=== PATIENT | female | born 1995 | race American Indian/Alaskan Native ===

== ENCOUNTER 2018-09-22 07:31 | Emergency (ER) | payer MEDICAID, OTHER ==
[2018-09-22 07:41] VITALS: BMI 16.9
[2018-09-22] MEDS ORDERED: Sodium Chloride 0.9% 1,000 ML IV STA ×2 (07:54→09:12)
--- NOTE | 2018-09-22 08:13 | ED PDOC ---
Arrival/HPI - General Chief Complaint: Abdominal Pain Time Seen by Provider: 09/22/18 07:33 Historian: Patient - History of Present Illness Narrative History of Present Illness (Text): 09/22/18 07:53 23 y/o F, with past medical history of pyelonephritis, presents to the ED for evaluation of fever, abdominal pain, and nausea since yesterday. Patient informs associated headache since past 2 days, mildly improved since onset. Patient reports a non-radiating sharp right sided abdominal pain associated with mild dysuria, prompting her to present to the ED for evaluation. Patient denies taking any pain medication at home. Patient denies any other associated somatic complaints. Patient denies any dizziness, chest pain, shortness of breath, dyspnea on exertion, cough, vomiting, diarrhea, back pain, neck pain, vaginal bleeding/discharge or any other complaints. Patient denies any history of asthma or abdominal surgeries. Patient denies compliance with the flue shot this year. Patient reports her LNMP was 4 days ago. PMD: NONE Time/Duration: 24 hours Symptom Onset: Gradual Symptom Course: Unchanged Activities at Onset: Light Context: Home Past Medical History - Provider Review Nursing Documentation Reviewed: Yes - Infectious Disease Hx of Infectious Diseases: None - Tetanus Immunization Tetanus Immunization: Unknown - Psychiatric Hx Substance Use: No - Anesthesia Hx Anesthesia: No Hx Anesthesia Reactions: No Hx Malignant Hyperthermia: No Family/Social History - Physician Review Nursing Documentation Reviewed: Yes Family/Social History: No Known Family HX Smoking Status: Former Smoker Hx Alcohol Use: No Hx Substance Use: No Allergies/Home Meds Allergies/Adverse Reactions: Allergies No Known Allergies Allergy (Verified 09/15/16 18:00) Review of Systems - Physician Review All systems were reviewed & negative as marked: Yes - Review of Systems Constitutional: Fevers Eyes: absent: Vision Changes Respiratory: absent: SOB, Cough Cardiovascular: absent: Chest Pain, PISANO Gastrointestinal: Abdominal Pain, Nausea. absent: Diarrhea, Vomiting Genitourinary Female: Dysuria. absent: Urine Output Changes, Vaginal Bleeding, Vaginal Discharge Musculoskeletal: absent: Back Pain, Neck Pain Skin: absent: Rash Neurological: Headache. absent: Dizziness Physical Exam Vital Signs Reviewed: Yes Vital Signs Temp Pulse Resp BP Pulse Ox 09/22/18 07:32 103 F H 107 H 20 103/64 99 Temperature: Febrile Blood Pressure: Normal Pulse: Tachycardic Respiratory Rate: Normal Appearance: Positive for: Well-Appearing, Non-Toxic, Comfortable Pain Distress: None Mental Status: Positive for: Alert and Oriented X 3 - Systems Exam Head: Present: Atraumatic, Normocephalic Pupils: Present: PERRL Extroacular Muscles: Present: EOMI Conjunctiva: Present: Normal Mouth: Present: Moist Mucous Membranes Neck: Present: Normal Range of Motion. No: Meningeal Signs Respiratory/Chest: Present: Clear to Auscultation, Good Air Exchange. No: Respiratory Distress, Accessory Muscle Use Cardiovascular: Present: Regular Rate and Rhythm, Normal S1, S2. No: Murmurs Abdomen: Present: Tenderness (tenderness to right lower quadrant). No: Distention, Peritoneal Signs, Rebound, Guarding Upper Extremity: Present: Normal Inspection. No: Cyanosis, Edema Lower Extremity: Present: Normal Inspection. No: Edema Neurological: Present: GCS=15, CN II-XII Intact, Speech Normal Skin: Present: Warm, Dry, Normal Color. No: Rashes Psychiatric: Present: Alert, Oriented x 3, Normal Insight, Normal Concentration Medical Decision Making ED Course and Treatment: 09/22/18 07:52 Impression: 23 year old female presents to the ED for evaluation of fever, abdominal pain and nausea. Differential Diagnosis included but are not limited to: -- Influenza -- Appendicitis -- Gastritis Plan: -- Labs -- Chest X-ray -- CT of Abdomen/Pelvis -- IV Fluids -- Toradol -- Tylenol -- Rapid Flu -- Urinalysis --Urine Culture --Rocephin -- Reassess and disposition Prior Visits: Notes and results from previous visits were reviewed. Progress Notes: 09/22/18 10:27 Labs reviewed with no leukocytosis noted. Urinalysis positive for nitrites and many bacteria. Rocephin ordered. - Lab Interpretations Lab Results: 09/22/18 08:00 09/22/18 08:00 Lab Results 09/22/18 08:00: pO2 64 H, VBG pH 7.37, VBG pCO2 50.0, VBG HCO3 28.9 H, VBG Total CO2 30.4 H, VBG O2 Sat (Calc) 94.4 H, VBG Base Excess 2.7 H, VBG Potassium 3.5 L , Sodium 137.0, Chloride 102.0, Glucose 115 H, Lactate 1.6, FiO2 21.0, Venous Blood Potassium 3.5 L 09/22/18 08:00: Sodium 139, Chloride 102, Potassium 3.5 L, Carbon Dioxide 29, Anion Gap 12, BUN 4 L, Creatinine 0.6 L, Est GFR ( Amer) > 60, Est GFR (Non-Af Amer) > 60, Random Glucose 119 H, Calcium 9.1, Total Bilirubin 0.4, AST 29, ALT 25, Alkaline Phosphatase 82, Total Protein 7.9, Albumin 4.1, Globulin 3.8, Albumin/Globulin Ratio 1.1, Lipase 28 09/22/18 08:00: Influenza Typ A,B (EIA) Negative for flu a/b 09/22/18 08:00: WBC 8.8, RBC 4.27, Hgb 12.5, Hct 38.4, MCV 89.9, MCH 29.3, MCHC 32.6, RDW 12.5, Plt Count 240, MPV 9.7, Gran % 69.9 H, Lymph % (Auto) 14.9 L, [place] % (Auto) 14.9 H, Eos % (Auto) 0.2 L, Baso % (Auto) 0.1, Gran # 6.15, Lymph # (Auto) 1.3, [place] # (Auto) 1.3 H, Eos # (Auto) 0.0, Baso # (Auto) 0.01 I have reviewed the lab results: Yes - RAD Interpretation Narrative RAD Interpretations (Text): 09/22/18 10:32 CT of Abdomen/Pelvis reviewed by radiologist, shows: FINDINGS: LOWER THORAX: Unremarkable. LIVER: Unremarkable. No gross lesion or ductal dilatation. GALLBLADDER AND BILE DUCTS: Unremarkable. PANCREAS: Unremarkable. No gross lesion or ductal dilatation. SPLEEN: Unremarkable. ADRENALS: Unremarkable. No mass. KIDNEYS AND URETERS: Unremarkable. No hydronephrosis. No solid mass. VASCULATURE: Unremarkable. No aortic aneurysm. No aortic atherosclerotic calcification or mural plaque present. BOWEL: Unremarkable. No obstruction. No gross mural thickening. APPENDIX: Normal appendix. PERITONEUM: There is a small amount of free fluid in the pelvis LYMPH NODES: Unremarkable. No enlarged lymph nodes. BLADDER: Unremarkable. REPRODUCTIVE: Unremarkable. BONES: No acute fracture. OTHER FINDINGS: None. IMPRESSION: Small amount of free fluid in the pelvis No acute intra-abdominal findings. No evidence of appendicitis Radiology Orders: 09/22/18 07:52 CHEST PORTABLE [RAD] Stat Donation Specialist: Radiologist - Medication Orders Current Medication Orders: Sodium Chloride (Sodium Chloride 0.9%) 1,000 mls @ 999 mls/hr IV .Q1H1M STA Stop: 09/22/18 08:54 Discontinued Medications Acetaminophen (Tylenol 325mg Tab) 650 mg PO STAT STA Stop: 09/22/18 07:53 Ketorolac Tromethamine (Toradol) 30 mg IVP STAT STA Stop: 09/22/18 07:53 - Scribe Statement The provider has reviewed the documentation as recorded by the Scribe Randolph Barajas. All medical record entries made by the Scribe were at my direction and personally dictated by me. I have reviewed the chart and agree that the record accurately reflects my personal performance of the history, physical exam, medical decision making, and the department course for this patient. I have also personally directed, reviewed, and agree with the discharge instructions and disposition. Disposition/Present on Arrival - Present on Arrival Any Indicators Present on Arrival: No History of DVT/PE: No History of Uncontrolled Diabetes: No Urinary Catheter: No History of Decub. Ulcer: No History Surgical Site Infection Following: None - Disposition Have Diagnosis and Disposition been Completed?: Yes Diagnosis: UTI (urinary tract infection) Disposition: HOME/ ROUTINE Disposition Time: 10:36 Patient Plan: Discharge Condition: IMPROVED Discharge Instructions (ExitCare): Urinary Tract Infection, Adult (DC) Print Language: BOT[place]NA[place] Additional Instructions: All medical record entries made by the Scribe were at my direction and personally dictated by me. I have reviewed the chart and agree that the record accurately reflects my personal performance of the history, physical exam, medical decision making, and the department course for this patient. I have also personally directed, reviewed, and agree with the discharge instructions and disposition. Please take Motrin every SIX hours with FOOD for fever/pain. Please visit clinic/PCP in 3-5 days Prescriptions: Cephalexin [Keflex] 500 mg PO BID 5 Days #10 capsule Ondansetron ODT [Zofran ODT] 4 mg PO PRN PRN #6 odt PRN Reason: Nausea/Vomiting Phenazopyridine HCl [Pyridium] 200 mg PO Q8H #12 tablet Referrals: Loren Chirinos MD [Medical Doctor] - Follow up with primary [facility] [place]] - Follow up with primary Forms: [employer] (Tuvaluan)
[2018-09-22 08:22] LABS: VENOUS BLOOD GAS BASE EXCESS 2.7 mmol/L (0.0-2.0); VENOUS BLOOD GAS PO2 64 mm/Hg (30-55); VENOUS BLOOD PH 7.37 (7.32-7.43)
[2018-09-22 08:23] LABS: BASO # 0.01 K/mm3 (0.0-2.0); BASO % 0.1 % (0.0-3.0); EOS % 0.2 % (1.5-5.0); GRAN # 6.15 (1.4-6.5); GRAN % 69.9 % (50.0-68.0); HEMOGLOBIN 12.5 g/dL (12.0-16.0); LYMPH # 1.3 (1.2-3.4); LYMPH % 14.9 % (22.0-35.0); MEAN CELL VOLUME 89.9 fl (80.0-105.0); MEAN CORPUSCULAR HEMOGLOBIN 29.3 pg (25.0-35.0); MEAN CORPUSCULAR HGB CONC 32.6 g/dl (31.0-37.0); MEAN PLATELET VOLUME 9.7 fl (7.0-11.0); MONO # 1.3 (0.1-0.6); MONO % 14.9 % (1.0-6.0); RBC 4.27 10^6/uL (3.5-6.1); RED CELL DISTRIBUTION WIDTH 12.5 % (11.5-14.5); WHITE BLOOD COUNT 8.8 10^3/uL (4.5-11.0)
[2018-09-22 08:33] LABS: ALB/GLOB RATIO 1.1 (1.1-1.8); ALBUMIN 4.1 g/dL (3.0-4.8); ALT/SGPT 25 U/L (7-56); AST/SGOT 29 U/L (14-36); BLOOD UREA NITROGEN 4 mg/dL (7-21); CALCIUM 9.1 mg/dL (8.4-10.5); GFR NON-AFRICAN AMERICAN > 60; LIPASE 28 U/L (23-300)
[2018-09-22] MEDS ORDERED: Iohexol 300 100 ML IJ ONE (08:44)
[2018-09-22 08:55] LABS: PH,URINE 7.5 (4.7-8.0); URINE APPEARANCE SL CLOUDY (CLEAR); URINE BILIRUBIN NEGATIVE (NEGATIVE); URINE BLOOD LARGE (NEGATIVE); URINE COLOR YELLOW (YELLOW); URINE GLUCOSE (UA) NEGATIVE (NEGATIVE); URINE LEUKOCYTE ESTERASE LARGE Leu/uL (NEGATIVE); URINE PROTEIN 30 mg/dL (<30 mg/dL)
[2018-09-22 08:59] LABS: URINE BACTERIA MANY /hpf; URINE RBC TNTC /hpf (0-2); URINE WBC TNTC /hpf (0-6)
[2018-09-22] MEDS ORDERED: cefTRIAXone 1 gm 1 GM/100 ML BAG IVPB STA (08:59)
[2018-09-22 09:36] VITALS: RESP 18
--- NOTE | 2018-09-22 10:14 | CT ---
Date of service: 09/22/2018 PROCEDURE: CT Abdomen and Pelvis with contrast HISTORY: RLQ abdominal pain COMPARISON: None. TECHNIQUE: Contrast dose: 100 cc of Omni 300 Radiation dose: Total exam DLP = 200.6 mGy-cm. This CT exam was performed using one or more of the following dose reduction techniques: Automated exposure control, adjustment of the mA and/or kV according to patient size, and/or use of iterative reconstruction technique. FINDINGS: LOWER THORAX: Unremarkable. LIVER: Unremarkable. No gross lesion or ductal dilatation. GALLBLADDER AND BILE DUCTS: Unremarkable. PANCREAS: Unremarkable. No gross lesion or ductal dilatation. SPLEEN: Unremarkable. ADRENALS: Unremarkable. No mass. KIDNEYS AND URETERS: Unremarkable. No hydronephrosis. No solid mass. VASCULATURE: Unremarkable. No aortic aneurysm. No aortic atherosclerotic calcification or mural plaque present. BOWEL: Unremarkable. No obstruction. No gross mural thickening. APPENDIX: Normal appendix. PERITONEUM: There is a small amount of free fluid in the pelvis LYMPH NODES: Unremarkable. No enlarged lymph nodes. BLADDER: Unremarkable. REPRODUCTIVE: Unremarkable. BONES: No acute fracture. OTHER FINDINGS: None. IMPRESSION: Small amount of free fluid in the pelvis No acute intra-abdominal findings. No evidence of appendicitis
[2018-09-22 11:28] VITALS: BP 104/68; PULSE 82; TEMP 98.8; O2SAT 100
--- NOTE | 2018-09-22 12:03 | RAD ---
Date of service: 09/22/2018 HISTORY: fever COMPARISON: No prior. FINDINGS: LUNGS: No active pulmonary disease. PLEURA: No significant pleural effusion identified, no pneumothorax apparent. CARDIOVASCULAR: No atherosclerotic calcification present Normal. OSSEOUS STRUCTURES: No significant abnormalities. VISUALIZED UPPER ABDOMEN: Normal. OTHER FINDINGS: None. IMPRESSION: No active disease.
== END 2018-09-22 11:29 | disposition home or self-care (01) ==
LOC: ED 07:31
DX: N39.0 Urinary tract infection, site not specified (principal)
CPT/HCPCS: 71045; 74177; 80053; 81001; 82803; 83690; 85025; 87040; 87086; 87181; 87804; 96361; 96365; 96375; 99283; J0696; J1885; J2765; J7030; Q9967

== ENCOUNTER 2018-12-08 17:27 | Emergency (ER) | payer MEDICAID ==
[2018-12-08 17:27] VITALS: BMI 18.5
[2018-12-08] MEDS ORDERED: Sodium Chloride 0.9% 1,000 ML IV STA (18:08)
[2018-12-08] MEDS ORDERED: DiphenhydrAMINE 50 mg/ml Inj IVP STA (18:08)
--- NOTE | 2018-12-08 19:22 | ED PDOC ---
Arrival/HPI - General Chief Complaint: Headache Time Seen by Provider: 12/08/18 17:27 Historian: Patient - History of Present Illness Narrative History of Present Illness (Text): 12/08/18 19:23 23 y/o female with no significant PMH presents to the ED c/o severe headache x 1 day. Headache is located over the right forehead, described as throbbing. Pt has never had migraine headaches in the past. States headache is severe. Associated intermittent lightheadedness, photophobia, and sinus congestion. Positive sick contact of son with the flu. Denies abdominal pain, chest pain, SOB, back pain, neck pain or stiffness, numbness, weakness, paresthesias, or any other associated symptoms. Past Medical History - Provider Review Nursing Documentation Reviewed: Yes - Infectious Disease Hx of Infectious Diseases: None - Tetanus Immunization Tetanus Immunization: Unknown - Psychiatric Hx Substance Use: No - Anesthesia Hx Anesthesia: No Hx Anesthesia Reactions: No Hx Malignant Hyperthermia: No Family/Social History - Physician Review Nursing Documentation Reviewed: Yes Family/Social History: No Known Family HX Smoking Status: Former Smoker Hx Alcohol Use: No Hx Substance Use: No Allergies/Home Meds Allergies/Adverse Reactions: Allergies No Known Allergies Allergy (Verified 12/08/18 17:45) Home Medications: Home Meds Medication Instructions Recorded Confirmed No Known Home Med 12/08/18 12/08/18 Review of Systems - Review of Systems Constitutional: Fevers. absent: Fatigue Eyes: Normal. absent: Vision Changes, Photophobia ENT: Sore Throat, Sinus Congestion Respiratory: Normal. absent: SOB, Cough Cardiovascular: Normal. absent: Chest Pain, Palpitations Gastrointestinal: Nausea, Vomiting. absent: Abdominal Pain, Stool Changes, Appetite Changes Genitourinary Female: Normal. absent: Dysuria, Frequency, Vaginal Bleeding, Vaginal Discharge Musculoskeletal: Normal. absent: Back Pain, Neck Pain Skin: Normal. absent: Rash Neurological: Headache. absent: Dizziness, Focal Weakness, Gait Changes, Speech Changes, Facial Droop, Disequilibrium Endocrine: Normal Hemo/Lymphatic: Normal Psychiatric: Normal Physical Exam Vital Signs Reviewed: Yes Vital Signs Temp Pulse Resp BP Pulse Ox 12/08/18 17:45 99.3 F 106 H 18 105/68 95 Temperature: Afebrile Blood Pressure: Normal Pulse: Tachycardic Respiratory Rate: Normal Appearance: Positive for: Well-Appearing, Non-Toxic, Comfortable Pain Distress: None Mental Status: Positive for: Alert and Oriented X 3 - Systems Exam Head: Present: Atraumatic, Normocephalic Pupils: Present: PERRL Extroacular Muscles: Present: EOMI Conjunctiva: Present: Normal Ears: Present: Normal, NORMAL TM, Normal [place] Mouth: Present: Moist Mucous Membranes Pharnyx: Present: Normal. No: ERYTHEMA, EXUDATE, TONSILS ENLARGED Neck: Present: Normal Range of Motion. No: Meningeal Signs Respiratory/Chest: Present: Clear to Auscultation, Good Air Exchange. No: Respiratory Distress, Accessory Muscle Use Cardiovascular: Present: Regular Rate and Rhythm, Normal S1, S2 Abdomen: Present: Normal Bowel Sounds. No: Tenderness, Distention, Peritoneal Signs, Rebound, Guarding Back: Present: Normal Inspection. No: CVA Tenderness Upper Extremity: Present: Normal Inspection, Normal ROM, NORMAL PULSES, Neurovascularly Intact, Capillary Refill < 2s. No: Cyanosis, Edema, Temperature Abnormalties Lower Extremity: Present: Normal Inspection, NORMAL PULSES, Normal ROM, Neurovascularly Intact, Capillary Refill < 2 s. No: Edema, Temperature Abnormalties Neurological: Present: GCS=15, CN II-XII Intact, Speech Normal, Motor Func Grossly Intact, Normal Sensory Function, Gait Normal Skin: Present: Warm, Dry, Normal Color. No: Rashes Lymphatic: No: Cervical Adenopathy Psychiatric: Present: Alert, Oriented x 3, Normal Insight, Normal Concentration, Normal Affect, Normal Mood Medical Decision Making ED Course and Treatment: 12/08/18 19:19 Initial Plan: * CBC, CMP * Coags * Rapid Strep * Rapid Flu * Head CT * IVF * Reglan * Benadryl * Tylenol negative for CBC reviewed, unremarkable Coags unremarkable 20:00 Patient care endorsed to Dr. Christine pending CMP, UA, Serology, Head CT, as well as reassessment and disposition. Pt resting comfortably in stretcher in NAD, VSS. - Lab Interpretations Lab Results: 12/08/18 18:45 Lab Results 12/08/18 19:30: Urine HCG, Qual Negative 12/08/18 19:30: Urine Opiates Screen Negative, Urine Methadone Screen Negative, Ur Barbiturates Screen Negative, Ur Phencyclidine Scrn Negative, Ur Amphetamines Screen Negative, U Benzodiazepines Scrn Negative, U Oth Cocaine Metabols Negative, U Cannabinoids Screen Negative 12/08/18 18:45: PT 12.4, INR 1.12, APTT 30.8 12/08/18 18:45: WBC 6.1 D, RBC 5.23, Hgb 15.5 D, Hct 46.6, MCV 89.1, MCH 29.6, MCHC 33.3, RDW 13.1, Plt Count 221, MPV 9.9, Neut % (Auto) 81.2 H, Lymph % (Auto) 7.7 L, [place] % (Auto) 10.4 H, Eos % (Auto) 0.5 L, Baso % (Auto) 0.2, Lymph # (Auto) 0.5 L, [place] # (Auto) 0.6, Eos # (Auto) 0.0, Baso # (Auto) 0.01, Absolute Neuts (auto) 4.98 - RAD Interpretation Radiology Orders: 12/08/18 18:08 HEAD W/O CONTRAST [CT] Stat - Medication Orders Current Medication Orders: Discontinued Medications Acetaminophen (Tylenol 325mg Tab) 975 mg PO STAT STA Stop: 12/08/18 18:09 Diphenhydramine HCl (Benadryl) 25 mg IVP STAT STA Stop: 12/08/18 18:09 Sodium Chloride (Sodium Chloride 0.9%) 1,000 mls @ 999 mls/hr IV .Q1H1M STA Stop: 12/08/18 19:08 Metoclopramide HCl (Reglan) 10 mg IVP STAT STA Stop: 12/08/18 18:09 - Transfer of Care Patient signed out to Dr:: Nanci Pending Labs:: Serology, UA, CMP Pending Radiology Studies:: CT Head, CXR Other: Reassesment and Disposition Disposition/Present on Arrival - Present on Arrival Any Indicators Present on Arrival: No History of DVT/PE: No History of Uncontrolled Diabetes: No Urinary Catheter: No History of Decub. Ulcer: No History Surgical Site Infection Following: None - Disposition Have Diagnosis and Disposition been Completed?: No Diagnosis: Headache Disposition Time: 20:00 Patient Problems: Current Active Problems Problem Status Onset Headache Acute Referrals: PCP,NO [Primary Care Provider] - Follow up with primary Forms: [employer] (Korean)
[2018-12-08 19:49] LABS: BASO # 0.01 K/mm3 (0.0-2.0); BASO % 0.2 % (0.0-3.0); EOS % 0.5 % (1.5-5.0); HEMOGLOBIN 15.5 g/dL (12.0-16.0); LYMPH # 0.5 (1.2-3.4); LYMPH % 7.7 % (22.0-35.0); MEAN CELL VOLUME 89.1 fl (80.0-105.0); MEAN CORPUSCULAR HEMOGLOBIN 29.6 pg (25.0-35.0); MEAN CORPUSCULAR HGB CONC 33.3 g/dl (31.0-37.0); MEAN PLATELET VOLUME 9.9 fl (7.0-11.0); MONO # 0.6 (0.1-0.6); MONO % 10.4 % (1.0-6.0); RBC 5.23 10^6/uL (3.5-6.1); RED CELL DISTRIBUTION WIDTH 13.1 % (11.5-14.5); WHITE BLOOD COUNT 6.1 10^3/uL (4.5-11.0)
[2018-12-08 19:53] LABS: INR 1.12; PARTIAL THROMBOPLASTIN TIME 30.8 Seconds (26.9-38.3); PROTHROMBIN TIME 12.4 SECONDS (9.4-12.5)
[2018-12-08 19:57] LABS: PHENCYCLIDINE, UR NEGATIVE (NEGATIVE)
[2018-12-08 20:00] LABS: BARBITURATES, UR NEGATIVE (NEGATIVE); BENZODIAZEPINES, UR NEGATIVE (NEGATIVE); OPIATES, UR NEGATIVE (NEGATIVE)
[2018-12-08 20:09] LABS: ALB/GLOB RATIO 1.1 (1.1-1.8); ALBUMIN 4.9 g/dL (3.0-4.8); AST/SGOT 27 U/L (14-36); BLOOD UREA NITROGEN 7 mg/dL (7-21); GFR NON-AFRICAN AMERICAN > 60
[2018-12-08 20:10] LABS: ALT/SGPT < 6 U/L (7-56)
[2018-12-08 20:47] VITALS: BP 97/56; PULSE 89; RESP 17; O2SAT 100
[2018-12-08 20:49] LABS: URINE BILIRUBIN NEGATIVE (NEGATIVE); URINE BLOOD SMALL (NEGATIVE); URINE GLUCOSE (UA) NEGATIVE (NEGATIVE); URINE LEUKOCYTE ESTERASE NEGATIVE Leu/uL (NEGATIVE); URINE PROTEIN NEGATIVE mg/dL (<30 mg/dL); URINE UROBILINOGEN 0.2 E.U./dL (<1 E.U./dL)
[2018-12-08 20:50] LABS: URINE APPEARANCE CLEAR (CLEAR); URINE COLOR YELLOW (YELLOW)
[2018-12-08 20:58] LABS: INFLUENZA A B POS FOR INFLUENZA A (NEGATIVE)
[2018-12-08 21:06] LABS: URINE BACTERIA MOD /hpf
--- NOTE | 2018-12-08 21:31 | ED PDOC ---
Physical Exam Vital Signs Reviewed: Yes Vital Signs Temp Pulse Resp BP Pulse Ox 12/08/18 20:46 89 17 97/56 L 100 12/08/18 17:45 99.3 F 106 H 18 105/68 95 Temperature: Afebrile Blood Pressure: Normal Pulse: Tachycardic Respiratory Rate: Normal Appearance: Positive for: Well-Appearing, Non-Toxic, Comfortable Pain Distress: None Mental Status: Positive for: Alert and Oriented X 3 Medical Decision Making ED Course and Treatment: 12/08/18 21:18 Case signed out to me by ALMA Orantes pending rapid flu and CAT scan of the head and reevaluation. Patient complaining of headache that started last night associated with photophobia. Patient having positive sick contacts at home. States her son was diagnosed with the flu. Patient complaining of some sinus congestion but denies fevers or chills and denies cough. Patient reassessment: Patient is feeling better. She denies headache at present time. cxr;wnl CAT scan of the head:FINDINGS: BRAIN No acute intraparenchymal hemorrhage. No mass lesion. No CT evidence for acute territorial infarct. No midline shift or extra-axial collections. VENTRICLES: No hydrocephalus. ORBITS: The orbits are unremarkable. SINUSES AND MASTOIDS: The paranasal sinuses and mastoid air cells are clear. BONES: No fracture. SOFT TISSUES: Unremarkable. IMPRESSION: No acute intracranial abnormality. Electronically signed on Dec 08, 2018 10:07:31 PM EDT by: Raul Cm M.D., TINO Certified By [facility] Fellowship Trained MRI and CT Specialist Rapid flu test was positive. Patient started on 75 mg of Tamiflu p.o. All results were discussed in depth with the patient patient was advised to take Tamiflu twice daily as prescribed increase fluids and take Motrin every 6 hours as needed for fever reduction. Patient was advised to me to return if symptoms worsen persist or if new concerning symptoms develop Patient verbalizes understanding of discharge instructions and need for immediate followup. Impression: Influenza, headache Motrin one tablet every 6 hours as needed for pain Tamiflu: 1 capsule twice daily x 5 days Increase fluids Followup with primary care physician the next 2 days Return if symptoms worsen persist or if new symptoms develop: Continued high fevers, dizziness, weakness, chest pain or shortness of breath vomiting/diarrhea, or if any other concerning symptoms develop Reassessment Condition: Re-examined, Improved - Lab Interpretations Lab Results: PT 12.4 SECONDS (9.4-12.5) 12/08/18 18:45 INR 1.12 12/08/18 18:45 APTT 30.8 Seconds (26.9-38.3) 12/08/18 18:45 Total Bilirubin 0.6 mg/dL (0.2-1.3) 12/08/18 18:45 AST 27 U/L (14-36) 12/08/18 18:45 ALT < 6 U/L (7-56) L 12/08/18 18:45 Alkaline Phosphatase 98 U/L (38-126) 12/08/18 18:45 Total Protein 9.6 g/dL (5.8-8.3) H 12/08/18 18:45 Albumin 4.9 g/dL (3.0-4.8) H 12/08/18 18:45 Globulin 4.7 gm/dL 12/08/18 18:45 Albumin/Globulin Ratio 1.1 (1.1-1.8) 12/08/18 18:45 Urine Color Yellow (YELLOW) 12/08/18 20:33 Urine Appearance Clear (CLEAR) 12/08/18 20:33 Urine pH 6.0 (4.7-8.0) 12/08/18 20:33 Ur Specific [place] 1.025 (1.005-1.035) 12/08/18 20:33 Urine Protein Negative mg/dL (<30 mg/dL) 12/08/18 20:33 Urine Glucose (UA) Negative mg/dL (NEGATIVE) 12/08/18 20:33 Urine Ketones 40 mg/dL (NEGATIVE) H 12/08/18 20:33 Urine Blood Small (NEGATIVE) H 12/08/18 20:33 Urine Nitrate Negative (NEGATIVE) 12/08/18 20:33 Urine Bilirubin Negative (NEGATIVE) 12/08/18 20:33 Urine Urobilinogen 0.2 E.U./dL (<1 E.U./dL) 12/08/18 20:33 Ur Leukocyte Esterase Negative Johan/uL (NEGATIVE) 12/08/18 20:33 Urine RBC 1 - 3 /hpf (0-2) H 12/08/18 20:33 Urine WBC 2 - 5 /hpf (0-6) 12/08/18 20:33 Ur Epithelial Cells 4 - 5 /hpf (0-5) 12/08/18 20:33 Urine Bacteria Mod /hpf (NONE) 12/08/18 20:33 Urine HCG, Qual Negative (NEGATIVE) 12/08/18 19:30 Urine HCG, Qual Negative (NEGATIVE) 12/08/18 19:30 - RAD Interpretation Radiology Orders: 12/08/18 18:08 HEAD W/O CONTRAST [CT] Stat 12/08/18 20:08 CXR (PA/LAT) [CHEST TWO VIEWS (PA/LAT)] [RAD] Stat - Medication Orders Current Medication Orders: Oseltamivir Phosphate (Tamiflu Cap) 75 mg PO STAT STA; Protocol Stop: 12/08/18 21:18 Discontinued Medications Acetaminophen (Tylenol 325mg Tab) 975 mg PO STAT STA Stop: 12/08/18 18:09 Last Admin: 12/08/18 19:28 Dose: 975 mg MAR Pain/Vitals Document 12/08/18 19:28 HB (Rec: 12/08/18 19:28 [id number] Pain Reassessment Is This A Pain ReAssessment? No Sleep Is patient sleeping during reassessment? No Presence of Pain Presence of Pain Yes Pain Scale Used Protocol: PSCALES Pain Scale Used Numeric Location Pain Location Body [employer] Description Constant Intensity 8 Scale Used Numeric Diphenhydramine HCl (Benadryl) 25 mg IVP STAT STA Stop: 12/08/18 18:09 Last Admin: 12/08/18 19:30 Dose: 50 mg IVP Administration Document 12/08/18 19:30 HB (Rec: 12/08/18 19:31 [id number] Charges for Administration # of IVP Administrations 1 Sodium Chloride (Sodium Chloride 0.9%) 1,000 mls @ 999 mls/hr IV .Q1H1M STA Stop: 12/08/18 19:08 Last Admin: 12/08/18 19:30 Dose: 999 mls/hr eMAR Start Stop Document 12/08/18 19:30 HB (Rec: 12/08/18 19:30 [id number] Intravenous Solution Start Date 12/08/18 Start Time 19:30 Metoclopramide HCl (Reglan) 10 mg IVP STAT STA Stop: 12/08/18 18:09 Last Admin: 12/08/18 19:31 Dose: 10 mg IVP Administration Document 12/08/18 19:31 HB (Rec: 12/08/18 19:31 [id number] Charges for Administration # of IVP Administrations 1 Disposition/Present on Arrival - Present on Arrival Any Indicators Present on Arrival: No History of DVT/PE: No History of Uncontrolled Diabetes: No Urinary Catheter: No History of Decub. Ulcer: No History Surgical Site Infection Following: None - Disposition Have Diagnosis and Disposition been Completed?: Yes Diagnosis: Headache, Influenza A Disposition: HOME/ ROUTINE Disposition Time: :31 Patient Plan: Discharge Patient Problems: Current Active Problems Problem Status Onset Headache Acute Influenza A Acute Condition: GOOD Discharge Instructions (ExitCare): Headache, Adult, Flu, Adult (DC) Additional Instructions: Motrin one tablet every 6 hours as needed for pain Tamiflu: 1 capsule twice daily x 5 days Increase fluids Followup with primary care physician the next 2 days Return if symptoms worsen persist or if new symptoms develop: Continued high fevers, dizziness, weakness, chest pain or shortness of breath vomiting/diarrhea, or if any other concerning symptoms develop Prescriptions: Ibuprofen [Motrin Tab] 400 mg PO Q6H PRN #20 tab PRN Reason: Pain, Mild (1-3) Oseltamivir Cap [Tamiflu] 75 mg PO BID #10 cap Referrals: Loren Chirinos MD [Medical Doctor] - Follow up with primary [employer] [Outside] - Follow up with primary Forms: [employer] (Georgian), WORK NOTE
[2018-12-08 22:41] VITALS: TEMP 98.7
--- NOTE | 2018-12-09 07:22 | CT ---
Date of service: 12/08/2018 PROCEDURE: CT HEAD WITHOUT CONTRAST. HISTORY: headache COMPARISON: None available. TECHNIQUE: Axial computed tomography images were obtained through the head/brain without intravenous contrast. Radiation dose: Total exam DLP = 914.87 mGy-cm. This CT exam was performed using one or more of the following dose reduction techniques: Automated exposure control, adjustment of the mA and/or kV according to patient size, and/or use of iterative reconstruction technique. FINDINGS: HEMORRHAGE: No intracranial hemorrhage. BRAIN: No mass effect or edema. No atrophy or chronic microvascular ischemic changes. VENTRICLES: Unremarkable. No hydrocephalus. CALVARIUM: Unremarkable. PARANASAL SINUSES: Unremarkable as visualized. No significant inflammatory changes. MASTOID AIR CELLS: Unremarkable as visualized. No inflammatory changes. OTHER FINDINGS: The report concurs with the preliminary [facility] report IMPRESSION: No acute intracranial findings
--- NOTE | 2018-12-09 07:39 | RAD ---
Date of service: 12/08/2018 HISTORY: congestion, fever COMPARISON: 09/22/2018 TECHNIQUE: Chest PA and lateral views FINDINGS: LUNGS: No active pulmonary disease. PLEURA: No significant pleural effusion identified. No pneumothorax apparent. CARDIOVASCULAR: No aortic atherosclerotic calcification present. Normal cardiac size. No pulmonary vascular congestion. OSSEOUS STRUCTURES: No significant abnormalities. VISUALIZED UPPER ABDOMEN: Normal. OTHER FINDINGS: None. IMPRESSION: No active disease.
== END 2018-12-08 22:39 | disposition home or self-care (01) ==
LOC: ED 17:27
DX: J10.1 Influenza due to other identified influenza virus with other respiratory manifestations (principal); R51 Headache; Z87.891 Personal history of nicotine dependence
CPT/HCPCS: 70450; 71046; 80053; 80324; 80345; 80346; 80349; 80353; 80358; 80361; 81001; 81025; 83992; 84703; 85025; 85610; 85730; 87070; 87430; 87804; 96374; 96375; 99284; J1200; J2765; J7030